=== PATIENT | female | born 1970 | race Caucasian/White ===

== ENCOUNTER 2019-08-14 22:26 | Emergency (ER) | payer OTHER, SELFPAY ==
[~2019-08-14] VITALS: Ht 162.6 cm; Wt 63.5 kg
[2019-08-15 00:27] VITALS: Ht 162.6 cm; Wt 63.5 kg
[2019-08-15 02:56] VITALS: BP 119/74
== END 2019-08-15 02:56 | disposition home or self-care (01) ==
LOC: ED 22:26
DX: U07.1 COVID-19 (principal); J20.9 Acute bronchitis, unspecified; I10 Essential (primary) hypertension; Z90.710 Acquired absence of both cervix and uterus
CPT/HCPCS: J1885; Q0092; U0003-CS